=== PATIENT | male | born 1990 | race Caucasian/White ===

== ENCOUNTER 2019-06-02 09:21 | Emergency (ER) | payer SELFPAY ==
--- NOTE | 2019-06-02 10:05 | EDM.PDOC ---
ED HPI GENERAL MEDICAL PROBLEM - General Chief Complaint: ENT Problem Stated Complaint: SORE THROAT Time Seen by Provider: 06/02/19 09:28 Source of Information: Reports: Patient History Limitations: Reports: No Limitations - History of Present Illness INITIAL COMMENTS - FREE TEXT/NARRATIVE: HISTORY AND PHYSICAL: History of present illness: Patient is a 29-year-old male who presents to the ED today with concern of sore throat since yesterday. Patient states he has been able to eat and drink but does have pain with swallowing. Patient states he did have his tonsils removed when he was 17 years old. Patient denies any other symptoms or concerns. Patient denies fever, chills, chest pain, shortness of breath, or cough. Denies headache, neck stiff ness, change in vision, syncope, or near syncope. Denies nausea, vomiting, abdominal pain, diarrhea, constipation, or dysuria. Has not noted any blood in urine or stool. Patient has been eating and drinking appropriately. Review of systems: As per history of present illness and below otherwise all systems reviewed and negative. Past medical history: As per history of present illness and as reviewed below otherwise noncontributory. Surgical history: As per history of present illness and as reviewed below otherwise noncontributory. Social history: See social history for further information Family history: As per history of present illness and as reviewed below otherwise noncontributory. Physical exam: General: Patient is alert, oriented, and in no acute distress. Patient sitting comfortably on exam table. HEENT: Atraumatic, normocephalic, pupils equal and reactive bilaterally, negative for conjunctival pallor or scleral icterus, mucous membranes moist, TMs normal bilaterally, throat clear and tonsils absent, neck supple, nontender , trachea midline. No drooling or trismus noted. No meningeal signs. No hot potato voice noted. Lungs: Clear to auscultation, breath sounds equal bilaterally, chest nontender. Heart: S1S2, regular rate and rhythm without overt murmur Abdomen: Soft, nondistended, nontender. Negative for masses or hepatosplenomegaly. Negative for costovertebral tenderness. Pelvis: Stable nontender. Genitourinary: Deferred. Rectal: Deferred. Skin: Intact, warm, dry. No lesions or rashes noted. Extremities: Atraumatic, negative for cords or calf pain. Neurovascular unremarkable. Neuro: Awake, alert, oriented. Cranial nerves II through XII unremarkable. Cerebellum unremarkable. Motor and sensory unremarkable throughout. Exam nonfocal. Notes: Discussed the importance for follow-up with a primary care provider. Voices understanding and is agreeable to plan of care. Denies any further questions or concerns at this time. Diagnostics: Influenza, Strep Therapeutics: None Prescription: None Impression: Pharyngitis Plan: 1. Use cough drops and/or other over the counter medications as needed for throat discomfort as discussed. Drink small but frequent sips of fluid to prevent dehydration. 2. Alternate Ibuprofen and Tylenol as directed for pain and discomfort. 3. Follow up with your billposter or primary care provider as discussed. 4. Return to the ED as needed and as discussed. Definitive disposition and diagnosis as appropriate pending reevaluation and review of above. Headache Pain Score (Numeric/FACES): 6 - Related Data Allergies Allergy/AdvReac Type Severity Reaction Status Date / Time No Known Allergies Allergy Verified 06/02/19 09:27 Home Meds: Home Meds . [No Known Home Meds] 06/02/19 [History] Past Medical History - Infectious Disease History Infectious Disease History: Reports: None - Past Surgical History HEENT Surgical History: Reports: Tonsillectomy Social & Family History - Family History Family Medical History: Noncontributory - Tobacco Use Smoking Status *Q: Former Smoker Used Tobacco, but Quit: Yes Month/Year Tobacco Last Used: 2014 - Caffeine Use Caffeine Use: Reports: Coffee - Recreational Drug Use Recreational Drug Use: No ED ROS GENERAL - Review of Systems Review Of Systems: Comprehensive ROS is negative, except as noted in HPI. ED EXAM, GENERAL - Physical Exam Exam: See Below (see dictation) Course - Vital Signs Last Recorded V/S: Last Vital Signs Temp 97.6 F 06/02/19 09:27 Pulse 86 06/02/19 09:27 Resp 18 06/02/19 09:27 BP 137/69 06/02/19 09:27 Pulse Ox 96 06/02/19 09:27 - Orders/Labs/Meds Orders: Active Orders 24 hr Category Date Time Status CULTURE STREP A CONFIRMATION [RM] Stat Lab 06/02/19 09:36 Results STREP SCRN A RAPID W CULT CONF [RM] Stat Lab 06/02/19 09:36 Results Departure - Departure Time of Disposition: 10:16 Disposition: Home, Self-Care 01 Clinical Impression: Pharyngitis Qualifiers: Pharyngitis/tonsillitis etiology: unspecified etiology Qualified Code(s): J02.9 - Acute pharyngitis, unspecified - Discharge Information Referrals: PCP,None [Primary Care Provider] - Forms: ED Department Discharge Additional Instructions: The following information is given to patients seen in the emergency department who are being discharged to home. This information is to outline your options for follow-up care. We provide all patients seen in our emergency department with a follow-up referral. The need for follow-up, as well as the timing and circumstances, are variable depending upon the specifics of your emergency department visit. If you don't have a primary care physician on staff, we will provide you with a referral. We always advise you to contact your personal physician following an emergency department visit to inform them of the circumstance of the visit and for follow-up with them and/or the need for any referrals to a consulting specialist. The emergency department will also refer you to a specialist when appropriate. This referral assures that you have the opportunity for follow-up care with a specialist. All of these measure are taken in an effort to provide you with optimal care, which includes your follow-up. Under all circumstances we always encourage you to contact your private physician who remains a resource for coordinating your care. When calling for follow-up care, please make the office aware that this follow-up is from your recent emergency room visit. If for any reason you are refused follow-up, please contact the [facility] Emergency Department at and asked to speak to the emergency department charge nurse. [facility] [address] [place] [id number] [id number] 1. Use cough drops and/or other over the counter medications as needed for throat discomfort as discussed. Drink small but frequent sips of fluid to prevent dehydration. 2. Alternate Ibuprofen and Tylenol as directed for pain and discomfort. 3. Follow up with your billposter or primary care provider as discussed. 4. Return to the ED as needed and as discussed. Sepsis Event Note - Evaluation Sepsis Screening Result: No Definite Risk - Focused Exam Vital Signs: Vital Signs Temp Pulse Resp BP Pulse Ox 06/02/19 09:27 97.6 F 86 18 137/69 96 Date Exam was Performed: 06/02/19 Time Exam was Performed: 10:16 - My Orders Last 24 Hours: My Active Orders 06/02/19 09:36 CULTURE STREP A CONFIRMATION [RM] Stat STREP SCRN A RAPID W CULT CONF [RM] Stat - Assessment/Plan Last 24 Hours: My Active Orders 06/02/19 09:36 CULTURE STREP A CONFIRMATION [RM] Stat STREP SCRN A RAPID W CULT CONF [RM] Stat
== END 2019-06-02 10:23 | disposition home or self-care (01) ==
LOC: MW.ED 09:21
DX: J02.9 Acute pharyngitis, unspecified (principal); Z87.891 Personal history of nicotine dependence
CPT/HCPCS: 87081; 87804; 87880-QW; 99282; 99283

== ENCOUNTER 2019-12-29 10:37 | Emergency (ER) | payer SELFPAY ==
[2019-12-29] MEDS ORDERED: Acetaminophen/HYDROcodone 325-5 MG Tab PO ONE (10:48)
--- NOTE | 2019-12-29 10:48 | EDM.PDOC ---
ED HPI GENERAL MEDICAL PROBLEM - General Chief Complaint: Back Pain or Injury Stated Complaint: BACK PAIN Time Seen by Provider: 12/29/19 10:39 Source of Information: Reports: Patient History Limitations: Reports: No Limitations - History of Present Illness INITIAL COMMENTS - FREE TEXT/NARRATIVE: HISTORY AND PHYSICAL: History of present illness: Patient is a 29-year-old male who presents to the emergency room with complaints of lumbar back pain that started last evening. 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 Yesterday he was lifting particularly heavy objects throughout the day for work. As he returned home he noticed some lumbar back pain that was worse this morning upon awakening. He has tried Tylenol and ibuprofen without any relief. Patient states he does occasionally get back pain 1-2 x per year. Recalls lifting in the "[employer] club" in high school, when he first experienced pain like this. Now it "just flares up" occasionally when he lifts something heavy or improperly. He denies any injury, trauma or falls. He denies any numbness, tingling, saddle paresthesia, weakness, urinary or fecal incontinence. He offe rs no systemic complaints. Review of systems: As per history of present illness and below otherwise all systems reviewed and negative. Past medical history: As per history of present illness and as reviewed below otherwise noncontributory. Surgical history: As per history of present illness and as reviewed below otherwise noncontributory. Social history: See social history for further information Family history: As per history of present illness and as reviewed below otherwise noncontributory. Physical exam: General: Well developed and well nourished 29 year old male. Alert and orie ntated. Nontoxic appearing and in no acute distress. HEENT: Atraumatic, normocephalic, pupils equal and reactive bilaterally, negative for conjunctival pallor or scleral icterus, mucous membranes moist, trachea midline. No drooling or trismus noted. No meningeal signs. No hot potato voice noted. Lungs: Clear to auscultation, breath sounds equal bilaterally, chest nontender. Heart: S1S2, regular rate and rhythm without overt murmur Abdomen: Soft, nondistended, obese, nontender. Negative for masses or costovertebral tenderness. Pelvis: Stable nontender. C-spine/Back: No pinpoint vertebral tenderness upon palpation. No crepitus, step-offs or obvious deformities. Paraspinous muscular tenderness bilaterally throughout the lumbar region. Patient is ambulatory into the emergency room without difficulty or deficit. Able to rock back on heels and walk on toes. Denies any urinary or fecal incontinence. Denies any numbness, tingling or saddle paresthesia. No concerns of serious infection, fracture or cord compression, or cauda equina syndrome. Deep tendon reflexes brisk bilaterally. Skin: Intact, warm, dry. No lesions or rashes noted. Extremities: Atraumatic, moves all extremities per self without difficulty or deficits, negative for cords or calf pain. Neurovascular unremarkable. Neuro: Awake, alert, oriented. Cranial nerves II through XII unremarkable. Cerebellum unremarkable. Motor and sensory unremarkable throughout. Exam nonfocal. Notes: Lumbar spine x-ray shows disc narrowing at L5-S1 possibly due to rudimentary disc from transitional segment. Otherwise no acute findings. Patient did find relief with [place] given here. Limited amount of pain medication will be provided. Follow up, medication and supportive care measures were reviewed and discussed. Voices understanding and is agreeable to plan of care. Denies any further questions or concerns at this time. Diagnostics: Lumbar x-ray Therapeutics: [place] Prescription: [place] Impression: Lumbago Plan: 1. The medication you received today does cause drowsiness, so do not drive for the remaining day 2. When resting please lay on a flat firm surface. Limit your immobility to prevent muscle stiffness. Get up to ambulate/move around/gentle stretching multiple times throughout the day. May alternate heat and ice to the painful areas 3. Tylenol as needed for back pain. Please take the Diclofenac routinely with FOOD over the next 3-5 days then as needed. [place] for moderate to severe pain - this is a narcotic, this medication may cause drowsiness a do not take it will driving her needing to be functioning outside of the house. 4. Please follow-up with your primary care provider as we discussed. Return to the ED as needed and as discussed. Definitive disposition and diagnosis as appropriate pending reevaluation and review of above. lower back Pain Score (Numeric/FACES): 9 - Related Data Allergies Allergy/AdvReac Type Severity Reaction Status Date / Time No Known Allergies Allergy Verified 12/29/19 10:44 Home Meds: Home Meds Acetaminophen/HYDROcodone [[place] 325-5 MG] 1 dose PO Q4H #20 tablet 12/29/19 [Rx] Albuterol Sulfate [Proair Hfa] 1 - 2 puff INH ASDIRECTED PRN 12/29/19 [History] Diclofenac Sodium [Voltaren] 75 mg PO BIDMEALS PRN #30 tab.cr 12/29/19 [Rx] Past Medical History - Infectious Disease History Infectious Disease History: Reports: None - Past Surgical History HEENT Surgical History: Reports: Tonsillectomy Social & Family History - Family History Family Medical History: Noncontributory - Caffeine Use Caffeine Use: Reports: Coffee ED ROS GENERAL - Review of Systems Review Of Systems: Comprehensive ROS is negative, except as noted in HPI. ED EXAM,LOWER BACK PAIN/INJURY - Physical Exam Exam: See Below (See dictation) Course - Vital Signs Last Recorded V/S: Last Vital Signs Temp 97.6 F 12/29/19 10:45 Pulse 89 12/29/19 10:45 Resp 19 12/29/19 10:45 BP 145/92 H 12/29/19 10:45 Pulse Ox 97 12/29/19 10:45 - Orders/Labs/Meds Meds: Medications Discontinued Medications Generic Name Dose Route Start Last Admin Trade Name Freq PRN Reason Stop Dose Admin Hydrocodone Bitart/Acetaminophen 2 tab 12/29/19 10:48 12/29/19 10:52 [place] 325-5 Mg PO 12/29/19 10:49 2 tab ONETIME ONE Administration Departure - Departure Time of Disposition: 12:30 Disposition: Home, Self-Care 01 Clinical Impression: Lumbago Qualifiers: Chronicity: acute Back pain laterality: bilateral Sciatica presence: without sciatica Qualified Code(s): M54.5 - Low back pain - Discharge Information Prescriptions: Acetaminophen/HYDROcodone [[place] 325-5 MG] 1 dose PO Q4H #20 tablet Diclofenac Sodium [Voltaren] 75 mg PO BIDMEALS PRN #30 tab.cr PRN Reason: Pain Instructions: Acute Back Pain, Adult Referrals: PCP,None [Primary Care Provider] - Forms: ED Department Discharge Additional Instructions: The following information is given to patients seen in the emergency department who are being discharged to home. This information is to outline your options for follow-up care. We provide all patients seen in our emergency department with a follow-up referral. The need for follow-up, as well as the timing and circumstances, are variable depending upon the specifics of your emergency department visit. If you don't have a primary care physician on staff, we will provide you with a referral. We always advise you to contact your personal physician following an emergency department visit to inform them of the circumstance of the visit and for follow-up with them and/or the need for any referrals to a consulting specialist. The emergency department will also refer you to a specialist when appropriate. This referral assures that you have the opportunity for follow-up care with a specialist. All of these measure are taken in an effort to provide you with optimal care, which includes your follow-up. Under all circumstances we always encourage you to contact your private physician who remains a resource for coordinating your care. When calling for follow-up care, please make the office aware that this follow-up is from your r ecent emergency room visit. If for any reason you are refused follow-up, please contact the [facility] Emergency Department at and asked to speak to the emergency department charge nurse. [facility] [address] [place] [address] [place] [id number] Thank you for choosing the [facility] emergency department in [place] for your medical needs today. It was a pleasure caring for you. You were seen in the emergency department for back pain. Your x-ray shows disc narrowing at L5-S1 possibly due to rudimentary disc from transitional segment. Otherwise no acute findings. 1. The medication you received today does cause drowsiness, so do not drive for the remaining day 2. When resting please lay on a flat firm surface. Limit your immobility to prevent muscle stiffness. Get up to ambulate/move around/gentle stretching multiple times throughout the day. May alternate heat and ice to the painful areas 3. Tylenol as needed for back pain. Please take the Diclofenac routinely with FOOD over the next 3-5 days then as needed. [place] for moderate to severe pain - this is a narcotic, this medication may cause drowsiness a do not take it will driving her needing to be functioning outside of the house. 4. Please follow-up with your primary care provider as we discussed. Return to the ED as needed and as discussed. Sepsis Event Note (ED) - Focused Exam Vital Signs: Vital Signs Temp Pulse Resp BP Pulse Ox 12/29/19 10:45 97.6 F 89 19 145/92 H 97
--- NOTE | 2019-12-29 12:26 | CR ---
Lumbar spine: AP, lateral and coned-down lateral view centered to the lumbosacral junction were obtained. Moderate disc space narrowing is noted at L5-S1. This may be a transitional segment with rudimentary disc. Other disc spaces are maintained. Vertebral body heights are maintained. Pedicles are intact. Transverse and spinous processes are intact. Sacroiliac joints are within normal limits. Impression: 1. Disc space narrowing at L5-S1 possibly due to rudimentary disc from transitional segment. 2. Three-view lumbar spine study is otherwise unremarkable. Diagnostic code #3 This report was dictated in MDT
== END 2019-12-29 12:43 | disposition home or self-care (01) ==
LOC: MW.ED 10:37
DX: M54.5 Low back pain (principal)
CPT/HCPCS: 72100; 99283; A9270

== ENCOUNTER 2020-02-01 19:11 | Emergency (ER) | payer SELFPAY ==
[2020-02-01] MEDS ORDERED: Octyl 2-Cyanoacrylate 1 Tube TOP ONE (20:21)
--- NOTE | 2020-02-01 20:47 | EDM.PDOC ---
ED HPI GENERAL MEDICAL PROBLEM - General Chief Complaint: Lower Extremity Injury/Pain Stated Complaint: LEFT FOOT LOWER BACK Time Seen by Provider: 02/01/20 19:42 Source of Information: Reports: Patient History Limitations: Reports: No Limitations - History of Present Illness INITIAL COMMENTS - FREE TEXT/NARRATIVE: HISTORY AND PHYSICAL: History of present illness: Patient is a 29-year-old male who presents to the ED today with concern of left- sided heel pain after he shaved down a callus. Patient states he had a callus of his left foot and he bought 1 of the "cheese grater foot scrubs "and scraped the callus off". Patient states since then he has had tenderness underneath the callus and he had 1 area that started to bleed and is more open. Patient states that he would like something to cover this area so it does not hurt. Patient states he was also seen here in the ED approximately 1 month ago and states he was given [place] for his low back pain. Patient states he would like more [place] as he continues to have back pain. Patient states his back pain continues to worsen because he lifts heavy objects at work and does not have any other solution but to live with back pain according to patient. Patient states his back pain is unchanged from his visit 1 month ago and denies trauma, injury, saddle anesthesia, loss or retention of bowel bladder function. Patient states he has not followed up with her primary care provider or seen any other provider other than in the emergency room for his low back. Patient states that "all other pain medications do not work for me ". Patient denies any other symptoms or concerns. Patient denies fever, chills, chest pain, shortness of breath, or cough. Denies headache, neck stiff ness, change in vision, syncope, or near syncope. Denies nausea, vomiting, abdominal pain, diarrhea, constipation, or dysuria. Has not noted any blood in urine or stool. Patient has been eating and drinking appropriately. Review of systems: As per history of present illness and below otherwise all systems reviewed and negative. Past medical history: As per history of present illness and as reviewed below otherwise noncontributo ry. Surgical history: As per history of present illness and as reviewed below otherwise noncontributory. Social history: See social history for further information Family history: As per history of present illness and as reviewed below otherwise noncontributory. Physical exam: General: Patient is alert, oriented, and in no acute distress. Patient sitting comfortably in a wheelchair. HEENT: Atraumatic, normocephalic, pupils equal and reactive bilaterally, negative for conjunctival pallor or scleral icterus, mucous membranes moist, TMs normal bilaterally, throat clear, neck supple, nontender, trachea midline. No drooling or trismus noted. No meningeal signs. No hot potato voice noted. Lungs: Clear to auscultation, breath sounds equal bilaterally, chest nontender. Heart: S1S2, regular rate and rhythm without overt murmur Abdomen: Soft, nondistended, nontender. Negative for masses or hepatosplenomegaly. Negative for costovertebral tenderness. Pelvis: Stable nontender. Genitourinary: Deferred. Rectal: Deferred. Skin: Intact, warm, dry. No lesions or rashes noted. Extremities/musculoskeletal: No obvious deformity of the complete spine. No step-offs, crepitus to palpation of the complete spine. Patient does have pain with palpation of the generalized lumbar region with limited range of motion of the lumbar spine due to pain. Patellar reflexes intact bilaterally. Heel/toe g ait intact. Patient has full range of motion of complete bilateral lateral lower extremities without pain or difficulty. Patient does have a superficial abrasion where he manually abraded a callus of his left heel without bleeding, erythema, or edema. Otherwise, atraumatic, negative for cords or calf pain. Neurovascular unremarkable. Neuro: Awake, alert, oriented. Cranial nerves II through XII unremarkable. Cerebellum unremarkable. Motor and sensory unremarkable throughout. Exam nonfocal. Notes: I did discuss with patient that I will not be prescribing narcotic pain medication at this time as patient has now been having back pain for 1 month. I discussed with patient the importance of establishing care with a primary care provider as his back pain in ongoing. Dermabond was used to fill in the superficial abrasion, which is not open or bleeding, of patient's left heel. Discussed importance for follow-up and establishing care with a primary care provider. Voices understanding and is agreeable to plan of care. Denies any further questions or concerns at this time. Diagnostics: None Therapeutics: Dermabond Prescription: Flexeril (declines diclofenac) Impression: Superficial abrasion, left heel Low back pain Plan: 1. When resting please lay on a flat firm surface. Limit your mobility to prevent muscle stiffness. Get up to ambulate/move around/gentle stretching multiple times throughout the day. May alternate heat and ice to painful areas. 2. Tylenol as needed for back pain. Otherwise, take the prescribed Flexeril as directed. Flexeril, this medication may cause drowsiness, so do not take it while driving or needing to be functioning outside of the home. 3. Follow-up/Establish care with a primary care provider as discussed. Return to the ED as needed and as discussed. Definitive disposition and diagnosis as appropriate pending reevaluation and review of above. Left Foot Pain Score (Numeric/FACES): 0 - Related Data Allergies Allergy/AdvReac Type Severity Reaction Status Date / Time No Known Allergies Allergy Verified 02/01/20 19:30 Home Meds: Home Meds Acetaminophen/HYDROcodone [[place] 325-5 MG] 1 dose PO Q4H #20 tablet 12/29/19 [Rx] Albuterol Sulfate [Proair Hfa] 1 - 2 puff INH ASDIRECTED PRN 12/29/19 [History] Diclofenac Sodium [Voltaren] 75 mg PO BIDMEALS PRN #30 tab.cr 12/29/19 [Rx] Past Medical History - Infectious Disease History Infectious Disease History: Reports: None - Past Surgical History HEENT Surgical History: Reports: Tonsillectomy Social & Family History - Family History Family Medical History: Noncontributory - Caffeine Use Caffeine Use: Reports: Coffee Review of Systems - Review of Systems Review Of Systems: Comprehensive ROS is negative, except as noted in HPI. ED EXAM, GENERAL - Physical Exam Exam: See Below (see dictation) Course - Vital Signs Last Recorded V/S: Last Vital Signs Temp 97.1 F 02/01/20 19:23 Pulse 91 02/01/20 19:23 Resp 18 02/01/20 19:23 BP 119/76 02/01/20 19:23 Pulse Ox 96 02/01/20 19:23 - Orders/Labs/Meds Meds: Medications Discontinued Medications Generic Name Dose Route Start Last Admin Trade Name Freq PRN Reason Stop Dose Admin Octyl Cyanoacrylate 1 applic 02/01/20 20:21 02/01/20 20:55 Dermabond Advance TOP 02/01/20 20:22 1 applic ONETIME ONE Administration Octyl Cyanoacrylate Confirm 02/01/20 20:51 Dermabond Advance Administered 02/01/20 20:52 Dose 1 applic .ROUTE .STK-MED ONE Departure - Departure Time of Disposition: 21:06 Disposition: Home, Self-Care 01 Clinical Impression: Superficial abrasion Low back pain Qualifiers: Chronicity: acute Back pain laterality: bilateral Sciatica presence: without sciatica Qualified Code(s): M54.5 - Low back pain - Discharge Information Referrals: PCP,None [Primary Care Provider] - Forms: ED Department Discharge Additional Instructions: The following information is given to patients seen in the emergency department who are being discharged to home. This information is to outline your options for follow-up care. We provide all patients seen in our emergency department with a follow-up referral. The need for follow-up, as well as the timing and circumstances, are variable depending upon the specifics of your emergency department visit. If you don't have a primary care physician on staff, we will provide you with a referral. We always advise you to contact your personal physician following an emergency department visit to inform them of the circumstance of the visit and for follow-up with them and/or the need for any referrals to a consulting specialist. The emergency department will also refer you to a specialist when appropriate. This referral assures that you have the opportunity for follow-up care with a specialist. All of these measure are taken in an effort to provide you with optimal care, which includes your follow-up. Under all circumstances we always encourage you to contact your private physician who remains a resource for coordinating your care. When calling for follow-up care, please make the office aware that this follow-up is from your recent emergency room visit. If for any reason you are refused follow-up, please contact the [facility] Emergency Department at and asked to speak to the emergency department charge nurse. [facility] [address] [place] [address] [facility] [address] [place] [address] 1. When resting please lay on a flat firm surface. Limit your mobility to prevent muscle stiffness. Get up to ambulate/move around/gentle stretching multiple times throughout the day. May alternate heat and ice to painful areas. 2. Tylenol as needed for back pain. Otherwise, take the prescribed Flexeril as directed. Flexeril, this medication may cause drowsiness, so do not take it while driving or needing to be functioning outside of the home. 3. Follow-up/Establish care with a primary care provider as discussed. Return to the ED as needed and as discussed. Sepsis Event Note (ED) - Evaluation Sepsis Screening Result: No Definite Risk - Focused Exam Vital Signs: Vital Signs Temp Pulse Resp BP Pulse Ox 02/01/20 19:23 97.1 F 91 18 119/76 96
[2020-02-01] MEDS ORDERED: Octyl 2-Cyanoacrylate 1 Tube ONE (20:51)
== END 2020-02-01 21:27 | disposition home or self-care (01) ==
LOC: MW.ED 19:11
DX: S90.812A Abrasion, left foot, initial encounter (principal); M54.5 Low back pain; X58.XXXA Exposure to other specified factors, initial encounter
CPT/HCPCS: 99283; A9270

== ENCOUNTER 2020-02-05 17:45 | Emergency (ER) | payer SELFPAY ==
[2020-02-05] MEDS ORDERED: Dexamethasone 4 MG Tab PO ONE (18:09)
--- NOTE | 2020-02-05 18:13 | EDM.PDOC ---
ED HPI GENERAL MEDICAL PROBLEM - General Chief Complaint: ENT Problem Stated Complaint: sore throat Time Seen by Provider: 02/05/20 18:05 - History of Present Illness INITIAL COMMENTS - FREE TEXT/NARRATIVE: History of present illness: Patient presents with 2 days of throat discomfort after riding in the car with a coworker who smokes. He denies any shortness of breath no fever no trouble swallowing no respiratory distress there has been no runny nose or congestion. Simply his throat is irritated. He denies any exposures he is taken nothing for this discomfort. Review of systems: As per history of present illness and below otherwise all systems reviewed and negative. Past medical history: As per history of present illness and as reviewed below otherwise noncontributory. Surgical history: As per history of present illness and as reviewed below otherwise noncontributory. Social history: No reported history of drug or alcohol abuse. Family history: As per history of present illness and as reviewed below otherwise noncontributory. Physical exam: HEENT: Atraumatic, normocephalic, pupils reactive, negative for conjunctival pallor or scleral icterus, mucous membranes moist, throat clear, neck supple, nontender, trachea midline. Steer pharynx reveals no asymmetry no erythema. Lungs: Clear to auscultation, breath sounds equal bilaterally, chest nontender. Heart: S1S2, regular, negative for clicks, rubs, or JVD. Abdomen: Soft, nondistended, nontender. Negative for masses or hepatosplenomegaly. Negative for costovertebral tenderness. Pelvis: Stable nontender. Genitourinary: Deferred. Rectal: Deferred. Extremities: Atraumatic, negative for cords or calf pain. Neurovascular unremarkable. Neuro: Awake, alert, oriented. Cranial nerves II through XII unremarkable. Cerebellum unremarkable. Motor and sensory unremarkable throughout. Exam nonfocal. Diagnostics: [] Therapeutics: [] Impression: Throat pain [] Plan: Decadron DC home salt water gargles Motrin Tylenol for discomfort return for worsening condition. [] Definitive disposition and diagnosis as appropriate pending reevaluation and review of above. Throat Pain Score (Numeric/FACES): 3 - Related Data Allergies Allergy/AdvReac Type Severity Reaction Status Date / Time No Known Allergies Allergy Verified 02/05/20 18:09 Home Meds: Home Meds Albuterol Sulfate [Proair Hfa] 1 - 2 puff INH ASDIRECTED PRN 12/29/19 [History] Diclofenac Sodium [Voltaren] 75 mg PO BIDMEALS PRN #30 tab.cr 12/29/19 [Rx] Past Medical History - Infectious Disease History Infectious Disease History: Reports: None - Past Surgical History HEENT Surgical History: Reports: Tonsillectomy Social & Family History - Family History Family Medical History: Noncontributory - Caffeine Use Caffeine Use: Reports: Coffee ED ROS GENERAL - Review of Systems Review Of Systems: See Below ED EXAM, GENERAL - Physical Exam Exam: See Below Course - Vital Signs Text/Narrative:: On exam there is no evidence of infection he has no stridor he has no trouble with his voice there is no hoarseness he has no adenopathy there is no throat tenderness to palpation the visual exam of the pharynx is unremarkable. There is no asymmetry or erythema. He will be given a dose of Decadron for discomfort he is encouraged to avoid tobacco smoke return to the ED for worsening condition otherwise follow-up with primary care Last Recorded V/S: Last Vital Signs Temp 36.4 C 02/05/20 18:06 Pulse 85 02/05/20 18:06 Resp 20 02/05/20 18:06 BP 147/90 H 02/05/20 18:06 Pulse Ox 97 02/05/20 18:06 - Orders/Labs/Meds Orders: Active Orders 24 hr Category Date Time Status dexAMETHasone Med 02/05/20 18:09 Once 8 mg PO ONETIME ONE Departure - Departure Time of Disposition: 18:12 Disposition: Home, Self-Care 01 Condition: Good Clinical Impression: Throat pain - Discharge Information *PRESCRIPTION DRUG MONITORING PROGRAM REVIEWED*: Not Applicable *COPY OF PRESCRIPTION DRUG MONITORING REPORT IN PATIENT SHLOMO: Not Applicable Instructions: Sore Throat, [id number] Referrals: PCP,None [Primary Care Provider] - Additional Instructions: The following information is given to patients seen in the emergency department who are being discharged to home. This information is to outline your options for follow-up care. We provide all patients seen in our emergency department with a follow-up referral. The need for follow-up, as well as the timing and circumstances, are variable depending upon the specifics of your emergency department visit. If you don't have a primary care physician on staff, we will provide you with a referral. We always advise you to contact your personal physician following an emergency department visit to inform them of the circumstance of the visit and for follow-up with them and/or the need for any referrals to a consulting specialist. The emergency department will also refer you to a specialist when appropriate. This referral assures that you have the opportunity for follow-up care with a specialist. All of these measure are taken in an effort to provide you with optimal care, which includes your follow-up. Under all circumstances we always encourage you to contact your private physician who remains a resource for coordinating your care. When calling for follow-up care, please make the office aware that this follow-up is from your recent emergency room visit. If for any reason you are refused follow-up, please contact the [facility] Emergency Department at and asked to speak to the emergency department charge nurse. [facility] [address] [place] [id number] [place] [address] Sepsis Event Note (ED) - Evaluation Sepsis Screening Result: No Definite Risk - Focused Exam Vital Signs: Vital Signs Temp Pulse Resp BP Pulse Ox 02/05/20 18:06 36.4 C 85 20 147/90 H 97 - My Orders Last 24 Hours: My Active Orders 02/05/20 18:09 dexAMETHasone 8 mg PO ONETIME ONE - Assessment/Plan Last 24 Hours: My Active Orders 02/05/20 18:09 dexAMETHasone 8 mg PO ONETIME ONE
== END 2020-02-05 18:27 | disposition home or self-care (01) ==
LOC: MW.ED 17:45
DX: R07.0 Pain in throat (principal)
CPT/HCPCS: 99282; J8540